=== PATIENT | female | born 1990 | race Caucasian/White ===

== ENCOUNTER 2021-12-24 08:00 | Outpatient (CLI) | payer OTHER ==
[~2021-12-24] VITALS: Ht 149.9 cm; Wt 59.0 kg
[2021-12-27 14:44] VITALS: BP_SYST 106
== END 2021-12-24 12:00 | disposition home or self-care (01) ==
LOC: SLB 08:00 → SDS 12-27 12:24 → SMU 12-27 12:26 → EDSTATUS 12-27 14:30 → SDS 12-27 19:17 → SMU 12-27 19:17
PROVIDERS: ATTEND Specialist
DX: Z01.812 Encounter for preprocedural laboratory examination (principal); O02.1 Missed abortion; Z20.822 Contact with and (suspected) exposure to COVID-19
CPT/HCPCS: 36415; U0003

== ENCOUNTER 2021-12-28 10:00 | Day surgery (SDC) | payer OTHER ==
[2021-12-28] MEDS ORDERED: CEFAZOLIN 1 GM IVPB PREMIX 50 ML IV ONE (11:46)
[2021-12-28] MEDS ORDERED: SEVOFLURANE 15 MIN GAS INH ONE (11:46)
[2021-12-28] MEDS ORDERED: fentaNYL CITRATE/PF 100 MCG/2 ML AMP ONE (11:46)
[2021-12-28] MEDS ORDERED: PROPOFOL 200MG/ 20ML VIAL (DIPRIVAN) IV ONE (11:46)
[2021-12-28] MEDS ORDERED: LR 1,000 ML IV.SOLN IV ONE (11:46)
[2021-12-28] MEDS ORDERED: MIDAZOLAM HCL 5 MG/5 ML VIAL ONE (11:46)
[2021-12-28] MEDS ORDERED: KETOROLAC TROMETHAMINE 30 MG VIAL IVP PRN (12:30)
[2021-12-28] MEDS ORDERED: METOCLOPRAMIDE HCL 10 MG/2 ML VIAL IVP PRN (12:30)
[2021-12-28] MEDS ORDERED: HYDROcodone/ACETAMIN 5-325 MG TAB (NORCO/ VICODIN) PO PRN (12:30)
[2021-12-28] MEDS ORDERED: HYDROmorphone 1 MG/ML INJ. CARTRIDGE IVP PRN (12:30)
[2021-12-28] MEDS ORDERED: ONDANSETRON HCL 4 MG/2 ML VIAL IVP PRN (12:30)
[2021-12-28] MEDS ORDERED: MORPHINE 4 MG INJ. 4 MG/ML VIAL IVP PRN (12:30)
[2021-12-28] MEDS ORDERED: ONDANSETRON HCL 4 MG/2 ML VIAL IM PRN (12:30)
[2021-12-28] MEDS ORDERED: OXYCODONE/ACETAMINOPHEN 5-325 TABLET PO PRN ×2 (12:30)
[2021-12-28 14:15] VITALS: BP_SYST 108
== END 2021-12-28 14:40 | disposition home or self-care (01) ==
LOC: SDS 10:00
PROVIDERS: ATTEND Specialist
DX: O20.0 Threatened abortion (principal); Z3A.08 8 weeks gestation of pregnancy
CPT/HCPCS: 59812; 88305; J0690; J2250; J2704; J3010; J7120

== ENCOUNTER 2022-03-18 14:21 | Day surgery (SDC) | payer OTHER ==
[~2022-03-18] VITALS: Ht 149.9 cm; Wt 57.6 kg
[2022-03-18] MEDS ORDERED: NACL 0.9% 1,000 ML IV SCH (15:00)
[2022-03-18 15:30] LABS: BASOPHILS % (AUTO) 0.2 % (0.0-2.0); EOSINOPHILS # (AUTO) 0.1 K/uL (0.0-0.4); EOSINOPHILS % (AUTO) 1.2 % (0.0-4.0); HEMATOCRIT 34.8 % (36-48); HEMOGLOBIN 11.9 g/dL (12.0-16.0); LYMPHOCYTES # (AUTO) 1.1 K/uL (1.0-5.5); LYMPHOCYTES % (AUTO) 18.8 % (20.5-51.5); MEAN CORPUSCULAR HEMOGLOBIN 31 pg (27-31); MEAN CORPUSCULAR HGB CONC 34 % (32-36); MEAN CORPUSCULAR VOLUME 89 fL (79.0-98.0); MONOCYTES # (AUTO) 0.4 K/uL (0.0-1.0); MONOCYTES % (AUTO) 7.3 % (1.7-9.3); NEUTROPHILS # (AUTO) 4.3 K/uL (1.8-7.7); NEUTROPHILS % (AUTO) 72.5 % (40.0-70.0); PLATELET COUNT (AUTO) 176 K/uL (130-430); RED CELL DISTRIBUTION WIDTH 12.3 % (9.0-15.0)
[2022-03-18] MEDS ORDERED: LR 1,000 ML IV.SOLN IV ONE (15:30)
[2022-03-18] MEDS ORDERED: OXYTOCIN/0.9 % SODIUM CHLORIDE 20 UNITS/1,000 ML BAG IV ONE (15:30)
[2022-03-18] MEDS ORDERED: SEVOFLURANE 15 MIN GAS INH ONE (15:30)
[2022-03-18] MEDS ORDERED: PROPOFOL 200MG/ 20ML VIAL (DIPRIVAN) IV ONE (15:30)
[2022-03-18] MEDS ORDERED: ceFAZolin SODIUM 1 GM VIAL ONE (15:30)
[2022-03-18] MEDS ORDERED: ONDANSETRON HCL 4 MG/2 ML VIAL IVP PRN ×2 (16:30→17:00)
[2022-03-18] MEDS ORDERED: fentaNYL CITRATE/PF 100 MCG/2 ML AMP IVP PRN ×2 (16:30)
[2022-03-18] MEDS ORDERED: METOCLOPRAMIDE HCL 10 MG/2 ML VIAL IVP PRN (16:30)
[2022-03-18 16:43] VITALS: BP_SYST 106
[2022-03-18] MEDS ORDERED: HYDROcodone/ACETAMIN 5-325 MG TAB (NORCO/ VICODIN) PO PRN (17:00)
[2022-03-18] MEDS ORDERED: HYDROmorphone 1 MG/ML INJ. CARTRIDGE IVP PRN (17:00)
[2022-03-18] MEDS ORDERED: OXYCODONE/ACETAMINOPHEN 5-325 TABLET PO PRN (17:00)
[2022-03-18] MEDS ORDERED: KETOROLAC TROMETHAMINE 60 MG/2 ML VIAL IM ONE (17:15)
== END 2022-03-18 18:50 | disposition home or self-care (01) ==
LOC: SOR 14:21 → SPU 14:25 → SOR 18:50
PROVIDERS: ATTEND Specialist
DX: O03.4 Incomplete spontaneous abortion without complication (principal); D25.1 Intramural leiomyoma of uterus; N96 Recurrent pregnancy loss; Z20.822 Contact with and (suspected) exposure to COVID-19
CPT/HCPCS: 59812; 85025; 36415; 88305; 87426; J0690; J1885; J2405; J2704; J1170; J7120; J2590

== ENCOUNTER 2023-08-22 06:00 | Day surgery (SDC) | payer OTHER ==
[~2023-08-22] VITALS: Ht 149.9 cm; Wt 63.5 kg
[2023-08-22 06:34] LABS: HCG,QUAL RESULT NEGATIVE (NEGATIVE)
[2023-08-22 06:46] VITALS: O2SAT 100
[2023-08-22] MEDS ORDERED: CEFAZOLIN SOD 2 GM in D5W 50 ML IV ONE (07:00)
[2023-08-22] MEDS ORDERED: fentaNYL CITRATE/PF 100 MCG/2 ML AMP ONE ×2 (09:18→12:08)
[2023-08-22] MEDS ORDERED: ACETAMINOPHEN I.V. 1000 MG 100 ML IV ONE (09:18)
[2023-08-22] MEDS ORDERED: MIDAZOLAM HCL 2 MG/2 ML VIAL (VERSED) ONE (09:18)
[2023-08-22] MEDS ORDERED: DEXAMETHASONE SOD PHOSPHATE 4 MG/ML VIAL ONE (09:22)
[2023-08-22] MEDS ORDERED: ONDANSETRON HCL 4 MG/2 ML VIAL IVP PRN ×2 (10:00→10:45)
[2023-08-22] MEDS ORDERED: fentaNYL CITRATE/PF 100 MCG/2 ML AMP IVP PRN (10:00)
[2023-08-22] MEDS ORDERED: LR 1,000 ML IV ONE (10:00)
[2023-08-22] MEDS ORDERED: HYDROmorphone 1 MG/ML INJ. CARTRIDGE IVP PRN (10:00)
[2023-08-22] MEDS ORDERED: HYDROcodone/ACETAMIN 5-325 MG TAB (NORCO/ VICODIN) PO PRN (10:45)
[2023-08-22] MEDS ORDERED: OXYCODONE/ACETAMINOPHEN 5-325 TABLET PO PRN ×2 (10:45)
[2023-08-22] MEDS: fentaNYL CITRATE/PF 100 MCG/2 ML AMP IVP PRN (12:15)
[2023-08-22 14:58] VITALS: BP_SYST 100; PULSE 79; RESP 16
== END 2023-08-22 14:31 | disposition home or self-care (01) ==
LOC: SDS 06:00 → SMU 06:00 → SDS 14:31
PROVIDERS: ATTEND Specialist
DX: Z30.2 Encounter for sterilization (principal); Z64.1 Problems related to multiparity; N80.00 Endometriosis of the uterus, unspecified; Z90.711 Acquired absence of uterus with remaining cervical stump; Z98.890 Other specified postprocedural states
CPT/HCPCS: 87081; 58662; 58670; 84703; 88302; J3490 ×2; J0690; J1100; J1885; J3465; J2405; J2704; J3010; J7060; J7120; C1782; C1727; J0131; J2710